=== PATIENT | male | born 1985 | race African-American/Black ===

== ENCOUNTER 2016-11-13 21:39 | Emergency (ER) | payer OTHER ==
[~2016-11-13] VITALS: Ht 182.9 cm; Wt 105.2 kg
[2016-11-13 21:39] VITALS: BP 141/73
[2016-11-13] MEDS ORDERED: AMOX500C PO (23:08)
[2016-11-13] MEDS: AMOXICILLIN 500 MG CAP PO ONE (23:10)
== END 2016-11-13 23:19 | disposition home or self-care (01) ==
LOC: M ED 22:46
DX: H66.91 Otitis media, unspecified, right ear (principal); J02.9 Acute pharyngitis, unspecified

== ENCOUNTER → 2018-01-06 | Outpatient (CLI) | payer OTHER | LOC: M OUTALCOH 07:40 | DX: Z03.89 Encounter for observation for other suspected diseases and conditions ruled out (principal) ==

== ENCOUNTER → 2018-01-10 | Outpatient (CLI) | payer OTHER | LOC: M OUTALCOH 14:36 | DX: Z03.89 Encounter for observation for other suspected diseases and conditions ruled out (principal) ==

== ENCOUNTER → 2019-01-17 | Outpatient (REF) | payer OTHER ==
[~2019-01-17] MED LIST: AMOX500C PO
== END ==
LOC: M SFHCLERA 18:52
PROVIDERS: ATTEND Nurse Practitioner Family
DX: J02.9 Acute pharyngitis, unspecified (principal)